=== PATIENT | female | born 1975 | race Caucasian/White ===

== ENCOUNTER 2019-03-15 19:51 | Emergency (ER) | payer BC ==
[2019-03-15] MEDS ORDERED: Sodium Chloride 0.9% 10 ML Syringe FLUSH PRN (20:23)
[2019-03-15] MEDS ORDERED: Famotidine 20 MG/2 ML SDV IVPUSH ONE (20:23)
[2019-03-15] MEDS ORDERED: Ondansetron 4 MG/2 ML SDV IVPUSH PRN (20:23)
--- NOTE | 2019-03-15 20:29 | EDM.PDOC ---
ED HPI GENERAL MEDICAL PROBLEM - General Chief Complaint: Abdominal Pain Stated Complaint: ABDOMINAL PAIN Time Seen by Provider: 03/15/19 20:03 Source of Information: Reports: Patient, RN Notes Reviewed - History of Present Illness INITIAL COMMENTS - FREE TEXT/NARRATIVE: 43-year-old female comes in with upper abdominal pain that started about 8 hours ago. The pain is a constant upper midabdominal ache with some radiation to her back but does not go away. She has had some nausea, markedly decreased appetite, has vomited once, no diarrhea. There is been no fever or chills. Prior but no other abdominal surgeries. She did eat out last evening, Vietnamese food but no other family members ill. No chest pain or difficulty breathing. She did have 1 brief 3-4 hour episode of discomfort about one week ago that was somewhat similar but than did resolve on its own. Otherwise she has never had anything like this before. She does not drink alcohol. 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 WEAVER History: Reports: Other (See Below) Other MATTRESS WEAVER History: pre-eclampsia - Past Surgical History Female Surgical History: Reports: Breast Implant, Section, Hysterectomy Social & Family History - Tobacco Use Smoking Status *Q: Never Smoker - Caffeine Use Caffeine Use: Reports: Coffee - Recreational Drug Use Recreational Drug Use: No ED ROS GENERAL - Review of Systems Review Of Systems: See Below Constitutional: Denies: Fever, Chills, Diaphoresis HEENT: Reports: No Symptoms Respiratory: Denies: Shortness of Breath, Pleuritic Chest Pain Cardiovascular: Denies: Chest Pain GI/Abdominal: Reports: Abdominal Pain, Nausea, Vomiting. Denies: Diarrhea, Stool Incontinence Musculoskeletal: Reports: Back Pain (mild) Skin: Reports: No Symptoms Neurological: Reports: No Symptoms ED EXAM, GI/ABD - Physical Exam Exam: See Below General Appearance: Alert, Moderate Distress Eyes: Bilateral: Normal Appearance Throat/Mouth: Normal Inspection, Normal Oropharynx Head: Atraumatic Neck: Supple, Full Range of Motion Respiratory/Chest: No Respiratory Distress, Lungs Clear, Normal Breath Sounds Cardiovascular: Regular Rate, Rhythm GI/Abdominal Exam: Other (Moderate tenderness upper mid abdomen, her abdomen soft and nontender, no guarding or rebound) Back Exam: No: CVA Tenderness (L), CVA Tenderness (R) Extremities: Normal Inspection, Normal Range of Motion Neurological: Alert, Oriented, No Motor/Sensory Deficits Skin Exam: Warm, Dry, Normal Color Course - Vital Signs Last Recorded V/S: Last Vital Signs Temp 98.2 F 03/15/19 20:05 Pulse 73 03/15/19 20:05 Resp 20 03/15/19 20:05 BP 149/89 H 03/15/19 20:05 Pulse Ox 100 03/15/19 20:05 - Orders/Labs/Meds Orders: Active Orders 24 hr Category Date Time Status Peripheral IV Care [RC] . DIRECTED Care 03/15/19 20:24 Active Vaccines to be Administered [RC] PER UNIT ROUTINE Care 03/15/19 22:49 Active Abdomen 2V AP Flat Upright [CR] Stat Exams 03/15/19 21:08 Taken Abdomen Ltd [US] Stat Exams 03/15/19 23:08 Taken Peripheral IV Insertion Adult [OM.PC] Stat Oth 03/15/19 20:23 Ordered Labs: Laboratory Tests 03/15/19 03/15/19 03/15/19 Range/Units 20:35 20:35 20:35 WBC 7.24 (3.98-10.04) K/mm3 RBC 4.89 (3.98-5.22) M/mm3 Hgb 15.4 (11.2-15.7) gm/L Hct 43.8 (34.1-44.9) % MCV 89.6 (79.4-94.8) fl MCH 31.5 (25.6-32.2) pg MCHC 35.2 (32.2-35.5) g/dl RDW Std Deviation 41.5 (36.4-46.3) fL Plt Count 253 (182-369) K/mm3 MPV 9.6 (9.4-12.3) fl Neut % (Auto) 72.7 H (34.0-71.1) % Lymph % (Auto) 17.3 L (19.3-51.7) % [place] % (Auto) 8.0 (4.7-12.5) % Eos % (Auto) 1.5 (0.7-5.8) Baso % (Auto) 0.4 (0.1-1.2) % Neut # (Auto) 5.26 (1.56-6.13) K/mm3 Lymph # (Auto) 1.25 (1.18-3.74) K/mm3 [place] # (Auto) 0.58 H (0.24-0.36) K/mm3 Eos # (Auto) 0.11 (0.04-0.36) K/mm3 Baso # (Auto) 0.03 (0.01-0.08) K/mm3 Sodium 139 (136-145) mEq/L Potassium 3.4 L (3.5-5.1) mEq/L Chloride 102 (98-107) mEq/L Carbon Dioxide 25 (21-32) mEq/L Anion Gap 15.4 H (5-15) BUN 11 (7-18) mg/dL Creatinine 1.1 H (0.55-1.02) mg/dL Est Cr Clr Drug Dosing 59.34 mL/min Estimated GFR (MDRD) 54 (>60) mL/min BUN/Creatinine Ratio 10.0 L (14-18) Glucose 128 H (74-106) mg/dL Calcium 9.2 (8.5-10.1) mg/dL Total Bilirubin 3.7 H (0.2-1.0) mg/dL GGT 374 H (5-55) U/L AST 356 H (15-37) U/L ALT 649 H (14-59) U/L Alkaline Phosphatase 126 H (46-116) U/L Total Protein 7.4 (6.4-8.2) g/dl Albumin 4.0 (3.4-5.0) g/dl Globulin 3.4 gm/dL Albumin/Globulin Ratio 1.2 (1-2) Lipase 32859 H (73-393) U/L Meds: Medications Discontinued Medications Generic Name Dose Route Start Last Admin Trade Name Freq PRN Reason Stop Dose Admin Famotidine 20 mg 03/15/19 20:23 03/15/19 20:40 Pepcid IVPUSH 03/15/19 20:24 20 mg ONETIME ONE Administration Hydromorphone HCl 0.5 mg 03/15/19 21:07 03/15/19 21:16 Dilaudid IVPUSH 03/15/19 21:08 0.5 mg ONETIME ONE Administration Hydromorphone HCl 0.5 mg 03/15/19 23:32 03/15/19 23:38 Dilaudid IVPUSH 03/15/19 23:33 0.5 mg ONETIME ONE Administration Hydromorphone HCl 0.5 mg 03/16/19 01:20 03/16/19 01:25 Dilaudid IVPUSH 03/16/19 01:21 0.5 mg ONETIME ONE Administration Sodium Chloride 1,000 mls @ 999 mls/hr 03/15/19 20:30 03/15/19 20:40 Normal Saline IV 999 mls/hr ONETIME KATHERINE Administration Metoclopramide HCl 5 mg 03/15/19 23:07 03/15/19 23:37 Reglan IVPUSH 03/15/19 23:08 5 mg ONETIME ONE Administration Ondansetron HCl 4 mg 03/15/19 20:23 03/15/19 20:40 Zofran IVPUSH 4 mg Q8H PRN Administration Nausea Sodium Chloride 10 ml 03/15/19 20:23 03/15/19 20:40 Saline Flush FLUSH 10 ml ASDIRECTED PRN Administration Keep Vein Open - Re-Assessments/Exams Free Text/Narrative Re-Assessment/Exam: 03/16/19 00:49 White blood count came back at 7240, lipase 39,000 bilirubin 3.7 ALT 649, AST 356 GGT 374 ALT 649 alkaline phosphatase 126. Ultrasound 2 shadowing stones 1 at 2.3 cm and one at 0.6. Wall thickness is normal at 3 mm, common bile duct diameter upper limits of normal at 6 mm. 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 There is strong likelihood that she will need ERCP for an obstructing stone. She has obtained better pain relief after Dilaudid 0.5 mg IV 3 over 1.5 hours and also Zofran 4 mg IV, Reglan [address] Davey, [facility] furnace combustion [facility] Her will transfer her private vehicle. Departure - Departure Time of Disposition: 00:47 Disposition: DC/Tfer to Acute Hospital 02 Condition: Serious Clinical Impression: Pancreatitis Qualifiers: Chronicity: acute Pancreatitis type: biliary Acute pancreatitis complication: unspecified Qualified Code(s): K85.10 - Biliary acute pancreatitis without necrosis or infection - Discharge Information Instructions: Acute Pancreatitis, [id number] Referrals: PCP,None [Primary Care Provider] - Forms: ED Department Discharge Additional Instructions: Transfer to [facility] for direct admission to hospitalist Dr Tatum. Go to the labor relations officer area, front entrance to get processed for admission. They will be expecting you. Transfer arrangements have been made. Do not eat or drink anything other than small sips of water for now. - My Orders Last 24 Hours: My Active Orders 03/15/19 20:23 Peripheral IV Insertion Adult [OM.PC] Stat 03/15/19 20:24 Peripheral IV Care [RC] . DIRECTED 03/15/19 21:08 Abdomen 2V AP Flat Upright [CR] Stat 03/15/19 22:49 Vaccines to be Administered [RC] PER UNIT ROUTINE 03/15/19 23:08 Abdomen Ltd [US] Stat - Assessment/Plan Last 24 Hours: My Active Orders 03/15/19 20:23 Peripheral IV Insertion Adult [OM.PC] Stat 03/15/19 20:24 Peripheral IV Care [RC] . DIRECTED 03/15/19 21:08 Abdomen 2V AP Flat Upright [CR] Stat 03/15/19 22:49 Vaccines to be Administered [RC] PER UNIT ROUTINE 03/15/19 23:08 Abdomen Ltd [US] Stat
[2019-03-15] MEDS ORDERED: Sodium Chloride 0.9% 1,000 ML IV SCH (20:30)
[2019-03-15] MEDS ORDERED: HYDROmorphone 0.5 MG/0.5 ML Syringe IVPUSH ONE ×2 (21:07→23:32)
[2019-03-15] MEDS ORDERED: Diphtheria,Pertussis(Acell),Tetanus Vaccine 0.5 ML Syringe IM ONE (22:49)
[2019-03-15] MEDS ORDERED: Metoclopramide 10 MG/2 ML SDV IVPUSH ONE (23:07)
[2019-03-16] MEDS ORDERED: HYDROmorphone 0.5 MG/0.5 ML Syringe IVPUSH ONE (01:20)
--- NOTE | 2019-03-16 10:15 | US ---
Limited abdominal ultrasound: Multiple real-time images of the upper right abdomen were obtained. Two gallstones seen within the gallbladder measuring 2.3 cm and 0.6 cm. Gallbladder wall does not appear thickened. No biliary duct dilatation is seen. Liver shows no focal parenchymal abnormality. Right kidney shows no hydronephrosis or mass now has a length of 9.6 cm. Aorta shows no aneurysm. Visualized pancreas appears within normal limits. Inferior vena cava is patent. Portal vein shows normal hepatopedal flow. Impression: 1. Two gallstones. No additional abnormality is appreciated on right upper quadrant abdominal ultrasound. Diagnostic code #3 I agree with preliminary report from [facility], finalized on 03/16/19, 1:13 AM Central Time
--- NOTE | 2019-03-16 10:16 | CR ---
Abdomen: Supine and upright views of the abdomen were obtained. Comparison: No prior abdominal x-ray. Bowel gas pattern appears normal. No free air is seen. No abnormal calcifications or soft tissue abnormality is seen. Bony structures are unremarkable. Impression: 1. Nothing acute is seen on two-view abdominal x-ray. Diagnostic code #1
== END 2019-03-16 01:40 ==
LOC: JD.ED 19:51
DX: K85.10 Biliary acute pancreatitis without necrosis or infection (principal); N18.3 Chronic kidney disease, stage 3 (moderate); Z88.1 Allergy status to other antibiotic agents; Z91.040 Latex allergy status; Z79.899 Other long term (current) drug therapy
CPT/HCPCS: 36415; 74019; 76705; 80053; 82977; 83690; 85025; 96361; 96374; 96375; 96376; 99285; J1170; J2405; J2765; J3490; J7040; 99284